=== PATIENT | female | born 1965 | race Caucasian/White ===

== ENCOUNTER 2017-09-09 14:45 | Emergency (ER) | payer OTHER ==
[2017-09-09 15:01] LABS: BASO % 0.4 % (0.0-1.0); EOS # 0.2 10^3/uL (0.0-0.50); EOS % 2.5 % (0.0-3.0); HEMATOCRIT 40.9 % (36.0-47.0); HEMOGLOBIN 13.5 g/dl (12.0-15.5); IMMATURE GRANULOCYTE % 0.6 % (0-3.0); LYMPH # 1.6 10^3/uL (1.5-4.5); LYMPH % 18.8 % (24.0-44.0); MEAN CORPUSCULAR HEMOGLOBIN 27.1 pg (27.0-33.0); MONO # 0.4 10^3/uL (0.0-0.8); MONO % 4.6 % (0.0-5.0); NEUTROPHILS # 6.1 10^3/uL (1.8-7.7); NEUTROPHILS % 73.1 % (36.0-66.0); PLATELET COUNT, AUTOMATED 393 10^3/uL (150-450); RED BLOOD COUNT 4.99 10^6/uL (4.00-5.40); RED CELL DISTRIBUTION WIDTH 16.8 % (11.5-14.5); WHITE BLOOD COUNT 8.4 10^3/uL (4.0-10.0)
[2017-09-09 15:02] LABS: BEDSIDE GLUCOSE 76 MG/DL (70-105)
[2017-09-09 15:05] LABS: VENOUS BASE EXCESS 2.2 (-2.0-2.0); VENOUS HCO3 27.7 MEQ/L (23.0-27.0); VENOUS O2 SATURATION 89.4 % (60.0-80.0); VENOUS PARTIAL PRESSURE CO2 45.9 mmHg (38.0-50.0); VENOUS PARTIAL PRESSURE O2 59.5 mmHg (30.0-50.0); VENOUS PH 7.398 UNITS (7.330-7.430); VENOUS STANDARD HCO3 26.3 MEQ/L; VENOUS TOTAL CO2 29.1 MEQ/L (24.0-28.0)
[2017-09-09 15:21] LABS: ESTIMATED AVERAGE GLUCOSE 111 MG/DL (60-110); HEMOGLOBIN A1c 5.5 %
[2017-09-09 15:29] LABS: ALBUMIN 3.8 GM/DL (3.2-5.2); ALKALINE PHOSPHATASE 175 U/L (45-117); ALT/SGPT 37 U/L (12-78); ANION GAP 5 MEQ/L (8-16); AST/SGOT 23 U/L (7-37); BILIRUBIN,DIRECT 0.1 MG/DL (0.0-0.2); BILIRUBIN,TOTAL 0.3 MG/DL (0.2-1.0); BLOOD UREA NITROGEN 9 MG/DL (7-18); CALCIUM LEVEL 8.9 MG/DL (8.5-10.1); CARBON DIOXIDE LEVEL 31 MEQ/L (21-32); CHLORIDE LEVEL 108 MEQ/L (98-107); CREATININE FOR GFR 0.75 MG/DL (0.55-1.30); GLOMERULAR FILTRATION RATE > 60.0 (>51); GLUCOSE, FASTING 67 MG/DL (70-100); LIPASE 101 U/L (73-393); POTASSIUM SERUM 3.2 MEQ/L (3.5-5.1); SODIUM LEVEL 144 MEQ/L (136-145); TOTAL PROTEIN 7.6 GM/DL (6.4-8.2)
[2017-09-09 15:57] LABS: BEDSIDE GLUCOSE 113 MG/DL (70-105)
== END 2017-09-09 16:30 | disposition home or self-care (01) ==
LOC: M ED 14:45
DX: E11.649 Type 2 diabetes mellitus with hypoglycemia without coma (principal); I10 Essential (primary) hypertension; Z79.899 Other long term (current) drug therapy; Z79.4 Long term (current) use of insulin
CPT/HCPCS: 83690

== ENCOUNTER 2017-10-14 01:47 | Inpatient (IN) | payer MEDICAID, OTHER ==
[2017-10-14 03:02] LABS: HEMATOCRIT 42.9 % (36.0-47.0); HEMOGLOBIN 14.2 g/dl (12.0-15.5); MEAN CORPUSCULAR HGB CONC 33.1 g/dl (32.0-36.5); MEAN CORPUSCULAR VOLUME 81.7 fl (80.0-96.0); PLATELET COUNT, AUTOMATED 389 10^3/uL (150-450); RED BLOOD COUNT 5.25 10^6/uL (4.00-5.40); RED CELL DISTRIBUTION WIDTH 16.1 % (11.5-14.5); WHITE BLOOD COUNT 9.6 10^3/uL (4.0-10.0)
[2017-10-14 03:30] LABS: AMPHETAMINES LEVEL URINE NEGATIVE (NEGATIVE); BARBITURATES URINE NEGATIVE (NEGATIVE); BENZODIAZEPINES URINE NEGATIVE (NEGATIVE); CANNABINOIDS URINE NEGATIVE (NEGATIVE); COCAINE METABOLITE URINE NEGATIVE (NEGATIVE); METHADONE URINE NEGATIVE (NEGATIVE); OPIATES URINE NEGATIVE (NEGATIVE); PHENCYCLIDINE URINE NEGATIVE (NEGATIVE)
[2017-10-14 03:39] LABS: ALBUMIN 4.1 GM/DL (3.2-5.2); ALBUMIN/GLOBULIN RATIO 0.98 (1.00-1.93); ALKALINE PHOSPHATASE 222 U/L (45-117); ALT/SGPT 29 U/L (12-78); ANION GAP 8 MEQ/L (8-16); AST/SGOT 15 U/L (7-37); BILIRUBIN,DIRECT 0.1 MG/DL (0.0-0.2); BILIRUBIN,TOTAL 0.4 MG/DL (0.2-1.0); BLOOD UREA NITROGEN 14 MG/DL (7-18); CALCIUM LEVEL 9.4 MG/DL (8.5-10.1); CARBON DIOXIDE LEVEL 30 MEQ/L (21-32); CHLORIDE LEVEL 107 MEQ/L (98-107); CREATININE FOR GFR 0.89 MG/DL (0.55-1.30); ETHYL ALCOHOL (ETHANOL) 0.005 % (0.000-0.010); GLOMERULAR FILTRATION RATE > 60.0 (>51); GLUCOSE, FASTING 133 MG/DL (70-100); POTASSIUM SERUM 4.1 MEQ/L (3.5-5.1); SALICYLATE LEVEL < 1.7 MG/DL (5.0-30.0); SODIUM LEVEL 145 MEQ/L (136-145); TOTAL PROTEIN 8.3 GM/DL (6.4-8.2)
[2017-10-14 03:42] LABS: ACETAMINOPHEN LEVEL < 2.0 UG/ML (10.0-30.0)
[2017-10-14] MEDS ORDERED: MAALOX 30 ML SUSP *UDC PO (04:15)
[2017-10-14] MEDS ORDERED: MOM 30ML SUSPENSION UDC PO (04:15)
[2017-10-14 09:52] LABS: BEDSIDE GLUCOSE 114 MG/DL (70-105)
[2017-10-14] MEDS ORDERED: GLUCAGON FOR INJ 1 MG VIAL (J1610) SC (10:00)
[2017-10-14] MEDS ORDERED: GLUCOSE 4 GM CHEW TABLET PO (10:00)
[2017-10-14] MEDS ORDERED: DEXTROSE 50% 50 ML SYRINGE IV (10:00)
[2017-10-14] MEDS: SERTRALINE HCL 50 MG TAB PO (11:40)
[2017-10-14 11:56] LABS: BEDSIDE GLUCOSE 134 MG/DL (70-105)
[2017-10-14] MEDS: HumaLOG INSULIN (NovoLOG) PER UNIT SC ×3 (12:25→20:49)
[2017-10-14] MEDS: hydrOXYzine 50 MG TAB PO (15:07)
[2017-10-14 17:10] LABS: BEDSIDE GLUCOSE 133 MG/DL (70-105)
[2017-10-14] MEDS: OMEPRAZOLE 20 MG CAP PO (20:44)
[2017-10-14] MEDS: PRAZOSIN 1 MG CAP PO (20:44)
[2017-10-14] MEDS: amLODIPine 5 MG TAB PO (20:44)
[2017-10-14] MEDS: FAMOTIDINE 20 MG TAB PO (20:44)
[2017-10-14] MEDS: LABETALOL 200 MG TAB PO (20:45)
[2017-10-14] MEDS: ATORVASTATIN 20 MG TAB PO (20:45)
[2017-10-14 20:51] LABS: BEDSIDE GLUCOSE 147 MG/DL (70-105)
[2017-10-14] MEDS ORDERED: LEVEMIR (INSULIN DETEMIR) 1 UNITS/0.01ML SC (21:00)
[2017-10-14] MEDS: traZODone 50 MG TAB PO (22:37)
[2017-10-14] MEDS: ACETAMINOPHEN TAB 650MG DOSE (2X325MG) PO (22:40)
[2017-10-15 05:30] LABS: BEDSIDE GLUCOSE 131 MG/DL (70-105)
[2017-10-15] MEDS: LEVOTHYROXINE 100MCG TABLET (0.1MG) PO (06:05)
[2017-10-15] MEDS: HumaLOG INSULIN (NovoLOG) PER UNIT SC ×4 (06:38→21:00)
[2017-10-15 06:48] LABS: HEMATOCRIT 41.4 % (36.0-47.0); HEMOGLOBIN 13.6 g/dl (12.0-15.5); MEAN CORPUSCULAR HEMOGLOBIN 26.9 pg (27.0-33.0); MEAN CORPUSCULAR HGB CONC 32.9 g/dl (32.0-36.5); PLATELET COUNT, AUTOMATED 349 10^3/uL (150-450); RED BLOOD COUNT 5.05 10^6/uL (4.00-5.40); WHITE BLOOD COUNT 7.8 10^3/uL (4.0-10.0)
[2017-10-15 07:19] LABS: ALBUMIN 3.8 GM/DL (3.2-5.2); ALBUMIN/GLOBULIN RATIO 1.03 (1.00-1.93); ALKALINE PHOSPHATASE 177 U/L (45-117); ALT/SGPT 27 U/L (12-78); ANION GAP 8 MEQ/L (8-16); AST/SGOT 17 U/L (7-37); BILIRUBIN,TOTAL 0.5 MG/DL (0.2-1.0); BLOOD UREA NITROGEN 16 MG/DL (7-18); CALCIUM LEVEL 8.9 MG/DL (8.5-10.1); CARBON DIOXIDE LEVEL 27 MEQ/L (21-32); CHLORIDE LEVEL 109 MEQ/L (98-107); CREATININE FOR GFR 0.75 MG/DL (0.55-1.30); GLOMERULAR FILTRATION RATE > 60.0 (>51); GLUCOSE, FASTING 134 MG/DL (70-100); POTASSIUM SERUM 4.1 MEQ/L (3.5-5.1); SODIUM LEVEL 144 MEQ/L (136-145); T UPTAKE 36 % (30-39); TOTAL PROTEIN 7.5 GM/DL (6.4-8.2)
[2017-10-15] MEDS: FUROSEMIDE 10MG PER 1/2 TABLET PO (08:36)
[2017-10-15] MEDS: POTASSIUM CHLORIDE 10 MEQ SR TABLET PO (08:36)
[2017-10-15] MEDS: SERTRALINE HCL 50 MG TAB PO (08:37)
[2017-10-15] MEDS: LOSARTAN 50 MG TAB PO (08:37)
[2017-10-15] MEDS: hydroCHLOROthiazide 25 MG TAB PO (08:37)
[2017-10-15] MEDS: LABETALOL 200 MG TAB PO ×2 (08:37→21:44)
[2017-10-15] MEDS: FAMOTIDINE 20 MG TAB PO ×2 (08:37→21:42)
[2017-10-15] MEDS: OMEPRAZOLE 20 MG CAP PO ×2 (08:38→21:42)
[2017-10-15] MEDS: LORATADINE 10 MG TAB PO (08:38)
[2017-10-15] MEDS: EZETIMIBE 10 MG TAB (ZETIA) PO (08:38)
[2017-10-15] MEDS: FERROUS SULFATE 325MG TAB PO (08:38)
[2017-10-15] MEDS: ACETAMINOPHEN TAB 650MG DOSE (2X325MG) PO (08:39)
[2017-10-15 12:12] LABS: BEDSIDE GLUCOSE 137 MG/DL (70-105)
[2017-10-15] MEDS: PREGABALIN 75 MG CAP(LYRICA) PO ×2 (16:43→21:42)
[2017-10-15 17:23] LABS: BEDSIDE GLUCOSE 127 MG/DL (70-105)
[2017-10-15] MEDS: amLODIPine 5 MG TAB PO (21:42)
[2017-10-15] MEDS: traZODone 50 MG TAB PO (21:42)
[2017-10-15] MEDS: PRAZOSIN 1 MG CAP PO (21:43)
[2017-10-15] MEDS: ATORVASTATIN 20 MG TAB PO (21:43)
[2017-10-15 21:51] LABS: BEDSIDE GLUCOSE 141 MG/DL (70-105)
[2017-10-16] MEDS: LEVOTHYROXINE 100MCG TABLET (0.1MG) PO (05:46)
[2017-10-16] MEDS: HumaLOG INSULIN (NovoLOG) PER UNIT SC ×4 (06:29→21:00)
[2017-10-16] MEDS: LOSARTAN 50 MG TAB PO (08:02)
[2017-10-16] MEDS: PREGABALIN 75 MG CAP(LYRICA) PO ×3 (08:03→21:10)
[2017-10-16] MEDS: FUROSEMIDE 10MG PER 1/2 TABLET PO (08:03)
[2017-10-16] MEDS: OMEPRAZOLE 20 MG CAP PO ×2 (08:03→21:10)
[2017-10-16] MEDS: LABETALOL 200 MG TAB PO ×2 (08:03→21:12)
[2017-10-16] MEDS: SERTRALINE HCL 50 MG TAB PO (08:03)
[2017-10-16] MEDS: FERROUS SULFATE 325MG TAB PO (08:04)
[2017-10-16] MEDS: LORATADINE 10 MG TAB PO (08:04)
[2017-10-16] MEDS: EZETIMIBE 10 MG TAB (ZETIA) PO (08:04)
[2017-10-16] MEDS: POTASSIUM CHLORIDE 10 MEQ SR TABLET PO (08:04)
[2017-10-16] MEDS: FAMOTIDINE 20 MG TAB PO ×2 (08:04→21:10)
[2017-10-16] MEDS: hydroCHLOROthiazide 25 MG TAB PO (08:04)
[2017-10-16 12:03] LABS: BEDSIDE GLUCOSE 137 MG/DL (70-105)
[2017-10-16 16:56] LABS: BEDSIDE GLUCOSE 134 MG/DL (70-105)
[2017-10-16] MEDS: ATORVASTATIN 20 MG TAB PO (21:10)
[2017-10-16] MEDS: amLODIPine 5 MG TAB PO (21:11)
[2017-10-16] MEDS: PRAZOSIN 1 MG CAP PO (21:11)
[2017-10-16 21:27] LABS: BEDSIDE GLUCOSE 138 MG/DL (70-105)
[2017-10-16] MEDS: traZODone 50 MG TAB PO (22:32)
[2017-10-17] MEDS: LEVOTHYROXINE 100MCG TABLET (0.1MG) PO (05:31)
[2017-10-17 05:59] LABS: BEDSIDE GLUCOSE 163 MG/DL (70-105)
[2017-10-17] MEDS: HumaLOG INSULIN (NovoLOG) PER UNIT SC ×4 (06:18→21:00)
[2017-10-17] MEDS: FAMOTIDINE 20 MG TAB PO ×2 (09:07→22:21)
[2017-10-17] MEDS: LORATADINE 10 MG TAB PO (09:07)
[2017-10-17] MEDS: EZETIMIBE 10 MG TAB (ZETIA) PO (09:07)
[2017-10-17] MEDS: LABETALOL 200 MG TAB PO ×2 (09:14→22:26)
[2017-10-17] MEDS: FERROUS SULFATE 325MG TAB PO (09:15)
[2017-10-17] MEDS: hydroCHLOROthiazide 25 MG TAB PO (09:15)
[2017-10-17] MEDS: PREGABALIN 75 MG CAP(LYRICA) PO ×3 (09:26→22:25)
[2017-10-17] MEDS: OMEPRAZOLE 20 MG CAP PO ×2 (09:26→22:26)
[2017-10-17] MEDS: SERTRALINE HCL 50 MG TAB PO (09:26)
[2017-10-17] MEDS: LOSARTAN 50 MG TAB PO (09:28)
[2017-10-17] MEDS: POTASSIUM CHLORIDE 10 MEQ SR TABLET PO (09:28)
[2017-10-17] MEDS: FUROSEMIDE 10MG PER 1/2 TABLET PO (09:33)
[2017-10-17 10:34] LABS: BEDSIDE GLUCOSE 134 MG/DL (70-105)
[2017-10-17] MEDS: ATORVASTATIN 20 MG TAB PO (22:21)
[2017-10-17] MEDS: PRAZOSIN 1 MG CAP PO (22:25)
[2017-10-17] MEDS: amLODIPine 5 MG TAB PO (22:26)
[2017-10-17 22:27] LABS: BEDSIDE GLUCOSE 131 MG/DL (70-105)
[2017-10-18] MEDS: LEVOTHYROXINE 100MCG TABLET (0.1MG) PO (06:11)
[2017-10-18 06:26] LABS: BEDSIDE GLUCOSE 153 MG/DL (70-105)
[2017-10-18] MEDS: HumaLOG INSULIN (NovoLOG) PER UNIT SC ×4 (06:32→22:05)
[2017-10-18] MEDS: SERTRALINE HCL 50 MG TAB PO (08:21)
[2017-10-18] MEDS: PREGABALIN 75 MG CAP(LYRICA) PO ×3 (08:21→22:02)
[2017-10-18] MEDS: POTASSIUM CHLORIDE 10 MEQ SR TABLET PO (08:21)
[2017-10-18] MEDS: OMEPRAZOLE 20 MG CAP PO ×2 (08:21→22:02)
[2017-10-18] MEDS: FERROUS SULFATE 325MG TAB PO (08:22)
[2017-10-18] MEDS: FAMOTIDINE 20 MG TAB PO ×2 (08:22→22:02)
[2017-10-18] MEDS: LOSARTAN 50 MG TAB PO (08:22)
[2017-10-18] MEDS: FUROSEMIDE 10MG PER 1/2 TABLET PO (08:22)
[2017-10-18] MEDS: hydroCHLOROthiazide 25 MG TAB PO (08:22)
[2017-10-18] MEDS: LORATADINE 10 MG TAB PO (08:22)
[2017-10-18] MEDS: EZETIMIBE 10 MG TAB (ZETIA) PO (08:22)
[2017-10-18] MEDS: LABETALOL 200 MG TAB PO ×2 (08:23→22:02)
[2017-10-18 12:22] LABS: BEDSIDE GLUCOSE 141 MG/DL (70-105)
[2017-10-18] MEDS: hydrOXYzine 50 MG TAB PO (14:27)
[2017-10-18 17:26] LABS: BEDSIDE GLUCOSE 157 MG/DL (70-105)
[2017-10-18] MEDS: ATORVASTATIN 20 MG TAB PO (22:02)
[2017-10-18] MEDS: PRAZOSIN 1 MG CAP PO (22:03)
[2017-10-18] MEDS: amLODIPine 5 MG TAB PO (22:03)
[2017-10-18] MEDS: traZODone 50 MG TAB PO (22:05)
[2017-10-18 22:15] LABS: BEDSIDE GLUCOSE 142 MG/DL (70-105)
[2017-10-19] MEDS: LEVOTHYROXINE 100MCG TABLET (0.1MG) PO (06:18)
[2017-10-19 06:28] LABS: BEDSIDE GLUCOSE 181 MG/DL (70-105)
[2017-10-19] MEDS: HumaLOG INSULIN (NovoLOG) PER UNIT SC (06:32)
[2017-10-19 07:55] LABS: BEDSIDE GLUCOSE 155 MG/DL (70-105)
[2017-10-19 07:55] LABS: BEDSIDE GLUCOSE 183 MG/DL (70-105)
[2017-10-19] MEDS: PREGABALIN 75 MG CAP(LYRICA) PO (08:33)
[2017-10-19] MEDS: LOSARTAN 50 MG TAB PO (08:33)
[2017-10-19] MEDS: LORATADINE 10 MG TAB PO (08:34)
[2017-10-19] MEDS: FUROSEMIDE 10MG PER 1/2 TABLET PO (08:34)
[2017-10-19] MEDS: LABETALOL 200 MG TAB PO (08:34)
[2017-10-19] MEDS: POTASSIUM CHLORIDE 10 MEQ SR TABLET PO (08:34)
[2017-10-19] MEDS: FERROUS SULFATE 325MG TAB PO (08:34)
[2017-10-19] MEDS: FAMOTIDINE 20 MG TAB PO (08:34)
[2017-10-19] MEDS: EZETIMIBE 10 MG TAB (ZETIA) PO (08:34)
[2017-10-19] MEDS: hydroCHLOROthiazide 25 MG TAB PO (08:34)
[2017-10-19] MEDS: OMEPRAZOLE 20 MG CAP PO (08:34)
[2017-10-19] MEDS: SERTRALINE HCL 50 MG TAB PO (08:34)
== END 2017-10-19 11:30 | disposition home or self-care (01) | DRG 885 ==
LOC: M ED 01:47 → M PSY 04:04
DX: F32.2 Major depressive disorder, single episode, severe without psychotic features (principal); Z68.42 Body mass index [BMI] 45.0-49.9, adult; F43.10 Post-traumatic stress disorder, unspecified; F41.1 Generalized anxiety disorder; Z62.810 Personal history of physical and sexual abuse in childhood; I10 Essential (primary) hypertension; E11.9 Type 2 diabetes mellitus without complications; F81.9 Developmental disorder of scholastic skills, unspecified; E78.5 Hyperlipidemia, unspecified; E03.9 Hypothyroidism, unspecified; E04.2 Nontoxic multinodular goiter; K21.9 Gastro-esophageal reflux disease without esophagitis; E66.9 Obesity, unspecified; J30.9 Allergic rhinitis, unspecified; M54.9 Dorsalgia, unspecified; D50.9 Iron deficiency anemia, unspecified; Z81.8 Family history of other mental and behavioral disorders; Z79.4 Long term (current) use of insulin; Z79.899 Other long term (current) drug therapy; Z81.3 Family history of other psychoactive substance abuse and dependence; Z63.5 Disruption of family by separation and divorce

== ENCOUNTER → 2018-08-23 | Outpatient (REF) | payer OTHER ==
[~2018-08-23] MED LIST: /AMIT25TA PO; /AMLO25TA PO; ALBU17IN2 INH; ALOG25TA PO; AMIT25TA PO; AMIT25TA10 PO; AMIT50TA PO; AMLO5TAB2 PO; AMLO5TAB6 PO; ANTI2TAB; ATOR40TA75; ATOR40TA75 PO; AUGM875T27 PO; BACL10TA2; BACL10TA2 PO; BENZ200C70 PO; CIPR500T89 PO; DRIS50003 PO; EZET10TA; FERR1TAB8; FERR325T3 PO; FLAG500T PO; FURO20TA2; FURO20TA2 PO; GABA-1171 PO; GABA100C PO; GABA600T4; GLIP5TAB2 PO; GLIP5TAB8 PO; HUMU500S SC; HYDR25TAB PO; HYDR50TA2 PO; HYDRO50TAB PO; INSULANT SC; INSURSD SC; INVO100T PO; JANU25TA PO; KLOR10TA76 PO; LABE20TAB PO; LABE300T PO; LEVO200T4; LEVO200T4 PO; LISI40TAB PO; LISI5TAB PO; LORA-243; LORA-243 PO; LOSA100T50; LOSA100T50 PO; LOVA40TA PO; LYRI75CA; LYRI75CA PO; METF1000 PO; METH25TAB; METH25TAB OR; MINI1CAP PO; MUCI600T37 PO; OMEP10CASR PO; OMEP20CA3 PO; POTA10CA32; POTA10TA PO; PRIL20CA PO; PYRI200T2 PO; RANI150T; RANI150T PO; SERT50TA PO; SIME80TA PO; TAPA5TAB PO; TOUJ1.2I; TOUJ1.2I SC; TRAZO50TA PO; TYLE325T5 PO; VITA10002 PO; VITA500047 PO; VITA50005 PO; VITA500T53 PO; ZEST30TA2 PO; ZETI10TA30 PO; lantus SC; potassium OR; vitamin D OR
[2018-08-23 17:03] LABS: APPEARANCE, URINE CLEAR (CLEAR); BACTERIA, URINE AUTO NEGATIVE (NEGATIVE); BILIRUBIN, URINE AUTO NEGATIVE (NEGATIVE); BLOOD, URINE BLOOD NEGATIVE (NEGATIVE); COLOR, URINE YELLOW (YELLOW); GLUCOSE, URINE (UA) AUTO 3+ mg/dL (NEGATIVE); KETONE, URINE AUTO TRACE mg/dL (NEGATIVE); LEUKOCYTE ESTERASE, URINE AUTO 1+ (NEGATIVE); NITRITE, URINE AUTO NEGATIVE (NEGATIVE); PROTEIN, URINE AUTO NEGATIVE (NEGATIVE); RBC, URINE AUTO 1 /HPF (0-3); SPECIFIC GRAVITY URINE AUTO 1.036 (1.002-1.035); SQUAMOUS EPITHELIAL CELL UR AU 2 /HPF (0-6); UROBILINOGEN, URINE AUTO 0.2 mg/dL (0.0-2.0); WBC, URINE AUTO 21 /HPF (0-3)
[2018-08-23 17:16] LABS: BASO % 0.4 % (0.0-1.0); EOS # 0.2 10^3/uL (0.0-0.50); EOS % 2.2 % (0.0-3.0); HEMATOCRIT 44.5 % (36.0-47.0); HEMOGLOBIN 15.1 g/dl (12.0-15.5); MEAN CORPUSCULAR HEMOGLOBIN 27.6 pg (27.0-33.0); MEAN CORPUSCULAR HGB CONC 33.9 g/dl (32.0-36.5); MEAN CORPUSCULAR VOLUME 81.4 fl (80.0-96.0); MONO # 0.4 10^3/uL (0.0-0.8); MONO % 5.2 % (0.0-5.0); NEUTROPHILS # 4.1 10^3/uL (1.8-7.7); NEUTROPHILS % 61.8 % (36.0-66.0); PLATELET COUNT, AUTOMATED 276 10^3/uL (150-450); RED BLOOD COUNT 5.47 10^6/uL (4.00-5.40); WHITE BLOOD COUNT 6.7 10^3/uL (4.0-10.0)
[2018-08-23 17:18] LABS: ALBUMIN 3.8 GM/DL (3.2-5.2); ALT/SGPT 84 U/L (12-78); BILIRUBIN,TOTAL 0.6 MG/DL (0.2-1.0); BLOOD UREA NITROGEN 10 MG/DL (7-18); CALCIUM LEVEL 9.1 MG/DL (8.5-10.1); CARBON DIOXIDE LEVEL 32 MEQ/L (21-32); CHLORIDE LEVEL 101 MEQ/L (98-107); CHOLESTEROL LEVEL 165 MG/DL (<200); CHOLESTEROL RISK RATIO 2.704 (<5); FREE T4 0.85 NG/DL (0.76-1.46); GLOMERULAR FILTRATION RATE > 60.0 (>51); GLUCOSE, FASTING 351 MG/DL (70-100); HDL CHOLESTEROL 61 MG/DL (>40); LDL CHOLESTEROL 61 MG/DL (<100); NON-HDL-C 104 MG/DL; POTASSIUM SERUM 4.2 MEQ/L (3.5-5.1); SODIUM LEVEL 139 MEQ/L (136-145); TOTAL PROTEIN 7.2 GM/DL (6.4-8.2); TRIGLYCERIDES LEVEL 213 MG/DL (<150)
[2018-08-23 17:20] LABS: FOLATE 11.6 NG/ML; VITAMIN B12 LEVEL 680 PG/ML
[2018-08-23 17:31] LABS: CREATININE, URINE 64.3 MG/DL; MAU/CREAT RATIO 20.2 MCG/MG (0.0-30.0)
[2018-08-23 17:36] LABS: HEMOGLOBIN A1c 8.9 %
== END ==
LOC: M LABDRAW1 16:02
PROVIDERS: ATTEND Family Medicine
DX: I10 Essential (primary) hypertension (principal); E11.9 Type 2 diabetes mellitus without complications; E78.5 Hyperlipidemia, unspecified; K21.9 Gastro-esophageal reflux disease without esophagitis; E03.9 Hypothyroidism, unspecified; R30.1 Vesical tenesmus

== ENCOUNTER 2018-10-28 17:11 | Emergency (ER) | payer OTHER ==
[~2018-10-28] VITALS: Ht 162.6 cm; Wt 111.4 kg
[~2018-10-28 17:11] MED LIST changes: -/AMIT25TA PO; -/AMLO25TA PO; +AMIT1TAB11 PO; -ANTI2TAB; +ANTI2TAB16; +HYDR-2541 PO; -HYDR25TAB PO; +LABE200T13 PO; +LISI40TA52 PO; -LISI40TAB PO; +NORV2TAB PO; +SERT-141 PO; -SERT50TA PO
[2018-10-28] MEDS ORDERED: IPRATROPIUM 0.5MG/ALBUTEROL 2.5MG INH SOL UD 3ML (DUONEB)(J7620) NEB ONE (18:00)
[2018-10-28 18:27] LABS: BASO % 0.6 % (0.0-1.0); EOS # 0.2 10^3/uL (0.0-0.50); EOS % 3.3 % (0.0-3.0); HEMATOCRIT 43.2 % (36.0-47.0); HEMOGLOBIN 15.2 g/dl (12.0-15.5); LYMPH % 28.7 % (24.0-44.0); MEAN CORPUSCULAR HEMOGLOBIN 28.4 pg (27.0-33.0); MEAN CORPUSCULAR HGB CONC 35.2 g/dl (32.0-36.5); MEAN CORPUSCULAR VOLUME 80.7 fl (80.0-96.0); MONO # 0.5 10^3/uL (0.0-0.8); MONO % 6.8 % (0.0-5.0); NEUTROPHILS # 4.2 10^3/uL (1.8-7.7); NEUTROPHILS % 59.9 % (36.0-66.0); PLATELET COUNT, AUTOMATED 289 10^3/uL (150-450); RED BLOOD COUNT 5.35 10^6/uL (4.00-5.40)
[2018-10-28] MEDS ORDERED: predniSONE 20 MG TAB PO ONE (18:30)
[2018-10-28 18:49] LABS: ALBUMIN 3.8 GM/DL (3.2-5.2); ALT/SGPT 73 U/L (12-78); BILIRUBIN,DIRECT 0.2 MG/DL (0.0-0.2); BILIRUBIN,TOTAL 0.6 MG/DL (0.2-1.0); BLOOD UREA NITROGEN 7 MG/DL (7-18); CALCIUM LEVEL 9.2 MG/DL (8.5-10.1); CARBON DIOXIDE LEVEL 30 MEQ/L (21-32); CHLORIDE LEVEL 103 MEQ/L (98-107); CK-MB VALUE MASS < 1.0 NG/ML (<3.6); CPK CREATINE PHOSPHOKINASE 81 U/L (26-192); CREATININE FOR GFR 0.88 MG/DL (0.55-1.30); GLOMERULAR FILTRATION RATE > 60.0 (>51); GLUCOSE, FASTING 294 MG/DL (70-100); MB/CK RELATIVE INDEX 1.23 (< OR =4); NT-PRO BNP 235 PG/ML (<125); POTASSIUM SERUM 3.5 MEQ/L (3.5-5.1); SODIUM LEVEL 140 MEQ/L (136-145); TOTAL PROTEIN 7.3 GM/DL (6.4-8.2); TROPONIN I < 0.02 NG/ML (< 0.10)
[2018-10-28] MEDS ORDERED: FLUT22IN INH (19:38)
[2018-10-28] MEDS ORDERED: AUGM875T28 PO (19:38)
[2018-10-28] MEDS ORDERED: VENTAER INH (19:38)
[2018-10-28 19:56] VITALS: BP 128/76
--- NOTE | 2018-10-29 08:05 | REP ---
REASON FOR EXAM: Cough and dyspnea. COMPARISON EXAMINATION: 11/15/2017. FINDINGS: The superior mediastinal structures are midline. The cardiac silhouette is unremarkable in size, shape, and position. The diaphragmatic surfaces of the lungs are regular, and the costophrenic angles are clear. The pulmonary frank are clear. The imaged osseous structures are intact. IMPRESSION: There is no acute cardiopulmonary disease. Electronically Signed by Ja Ibrahim DO 10/29/2018 08:30 A
--- NOTE | 2018-10-29 17:46 | ECGEPIP ---
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
== END 2018-10-28 20:05 | disposition home or self-care (01) ==
LOC: M ED 17:11
DX: J20.9 Acute bronchitis, unspecified (principal); E66.9 Obesity, unspecified; E11.9 Type 2 diabetes mellitus without complications; I10 Essential (primary) hypertension; E78.5 Hyperlipidemia, unspecified; K21.9 Gastro-esophageal reflux disease without esophagitis; G43.909 Migraine, unspecified, not intractable, without status migrainosus; E03.9 Hypothyroidism, unspecified; F41.9 Anxiety disorder, unspecified; F32.9 Major depressive disorder, single episode, unspecified; M54.30 Sciatica, unspecified side; D64.9 Anemia, unspecified; Z82.49 Family history of ischemic heart disease and other diseases of the circulatory system; Z82.5 Family history of asthma and other chronic lower respiratory diseases; Z79.4 Long term (current) use of insulin; Z79.899 Other long term (current) drug therapy; Z88.5 Allergy status to narcotic agent

== ENCOUNTER → 2019-02-27 | Outpatient (CLI) | payer OTHER ==
[~2019-02-27] MED LIST changes: -ALBU17IN2 INH; +AUGM875T28 PO; +CYAN100049 PO; -EZET10TA; +EZET10TA21; +FLUT22IN INH; +HYDR1TAB33 PO; -HYDRO50TAB PO; +OMEP1CAP73 PO; +PROV108A INH; +TRAZ1TAB10 PO; -TRAZO50TA PO; +VENTAER INH; +ZETI10TA16 PO; -ZETI10TA30 PO
[2019-02-27 17:13] LABS: BASO % 0.5 % (0.0-1.0); EOS # 0.2 10^3/uL (0.0-0.5); EOS % 1.9 % (0.0-3.0); HEMATOCRIT 43.3 % (36.0-47.0); HEMOGLOBIN 14.9 g/dl (12.0-15.5); LYMPH # 2.1 10^3/uL (1.5-5.0); MEAN CORPUSCULAR HEMOGLOBIN 28.4 pg (27.0-33.0); MEAN CORPUSCULAR HGB CONC 34.4 g/dl (32.0-36.5); MEAN CORPUSCULAR VOLUME 82.5 fl (80.0-96.0); MONO # 0.4 10^3/uL (0.0-0.8); MONO % 4.8 % (0.0-5.0); NEUTROPHILS # 5.1 10^3/uL (1.5-8.5); NEUTROPHILS % 65.4 % (36.0-66.0); PLATELET COUNT, AUTOMATED 319 10^3/uL (150-450); RED BLOOD COUNT 5.25 10^6/uL (4.00-5.40); WHITE BLOOD COUNT 7.9 10^3/uL (4.0-10.0)
[2019-02-27 17:39] LABS: ALBUMIN 3.7 GM/DL (3.2-5.2); ALT/SGPT 101 U/L (12-78); BILIRUBIN,TOTAL 0.4 MG/DL (0.2-1.0); BLOOD UREA NITROGEN 7 MG/DL (7-18); CALCIUM LEVEL 9.5 MG/DL (8.5-10.1); CARBON DIOXIDE LEVEL 29 MEQ/L (21-32); CHLORIDE LEVEL 102 MEQ/L (98-107); CHOLESTEROL LEVEL 206 MG/DL (<200); CHOLESTEROL RISK RATIO 3.433 (<5); CREATININE FOR GFR 0.84 MG/DL (0.55-1.30); FREE T4 0.74 NG/DL (0.76-1.46); GLOMERULAR FILTRATION RATE > 60.0 (>51); GLUCOSE, FASTING 382 MG/DL (70-100); HDL CHOLESTEROL 60 MG/DL (>40); IRON (FE) 62 UG/DL (50-170); LDL CHOLESTEROL 74 MG/DL (<100); NON-HDL-C 146 MG/DL; POTASSIUM SERUM 3.8 MEQ/L (3.5-5.1); SODIUM LEVEL 140 MEQ/L (136-145); TRIGLYCERIDES LEVEL 359 MG/DL (<150)
[2019-02-27 17:45] LABS: APPEARANCE, URINE CLEAR (CLEAR); BACTERIA, URINE AUTO NEGATIVE (NEGATIVE); BILIRUBIN, URINE AUTO NEGATIVE (NEGATIVE); BLOOD, URINE BLOOD NEGATIVE (NEGATIVE); COLOR, URINE YELLOW (YELLOW); GLUCOSE, URINE (UA) AUTO 3+ mg/dL (NEGATIVE); KETONE, URINE AUTO NEGATIVE (NEGATIVE); LEUKOCYTE ESTERASE, URINE AUTO TRACE (NEGATIVE); NITRITE, URINE AUTO NEGATIVE (NEGATIVE); PROTEIN, URINE AUTO NEGATIVE (NEGATIVE); RBC, URINE AUTO 2 /HPF (0-3); SPECIFIC GRAVITY URINE AUTO 1.032 (1.002-1.035); SQUAMOUS EPITHELIAL CELL UR AU 2 /HPF (0-6); UROBILINOGEN, URINE AUTO 0.2 mg/dL (0.0-2.0); WBC, URINE AUTO 8 /HPF (0-3)
[2019-02-27 17:47] LABS: CREATININE, URINE 48.9 MG/DL; MALB URINE SIEMENS 19.4 MG/L; MAU/CREAT RATIO 39.6 MCG/MG (0.0-30.0)
[2019-02-27 18:08] LABS: HEMOGLOBIN A1c 9.3 %
[2019-03-02 00:06] LABS: TESTOSTERONE FREE (DIRECT) 3.5 pg/mL (0.0-4.2)
== END ==
LOC: M LAB 16:13
PROVIDERS: ATTEND Family Medicine
DX: E03.9 Hypothyroidism, unspecified (principal); E11.40 Type 2 diabetes mellitus with diabetic neuropathy, unspecified; R94.5 Abnormal results of liver function studies; Z79.4 Long term (current) use of insulin; E78.5 Hyperlipidemia, unspecified; L65.9 Nonscarring hair loss, unspecified

== ENCOUNTER → 2019-03-22 | Outpatient (CLI) | payer OTHER ==
[~2019-03-22] MED LIST changes: -OMEP1CAP73 PO; +OMEP20CA4 PO
== END ==
LOC: M LAB 16:32
PROVIDERS: ATTEND Internal Medicine Cardiovascular Disease
DX: R06.02 Shortness of breath (principal)

== ENCOUNTER → 2019-07-27 | Outpatient (REF) | payer OTHER ==
[~2019-07-27] MED LIST changes: +OMEP1CAP73 PO; -OMEP20CA4 PO
[2019-07-27 22:20] LABS: INFLUENZA A AMPLIFICATION NEGATIVE (NEGATIVE); INFLUENZA B AMPLIFICATION NEGATIVE (NEGATIVE)
== END ==
LOC: M LAB REF 08:40
PROVIDERS: ATTEND Physician Assistant
DX: J10.1 Influenza due to other identified influenza virus with other respiratory manifestations (principal)

== ENCOUNTER → 2019-12-25 | Outpatient (CLI) | payer OTHER ==
[~2019-12-25] MED LIST changes: +AMLO1TAB24 PO; -AMLO5TAB6 PO
[2019-12-25 18:21] LABS: ALBUMIN 3.4 GM/DL (3.2-5.2); ALT/SGPT 40 U/L (12-78); BILIRUBIN,TOTAL 0.4 MG/DL (0.2-1.0); BLOOD UREA NITROGEN 18 MG/DL (7-18); CALCIUM LEVEL 9.3 MG/DL (8.5-10.1); CARBON DIOXIDE LEVEL 28 MEQ/L (21-32); CHLORIDE LEVEL 105 MEQ/L (98-107); CHOLESTEROL LEVEL 211 MG/DL (<200); CHOLESTEROL RISK RATIO 3.196 (<5); FREE T4 1.16 NG/DL (0.76-1.46); GLOMERULAR FILTRATION RATE > 60.0 (>51); GLUCOSE, FASTING 180 MG/DL (70-100); HDL CHOLESTEROL 66 MG/DL (>40); IRON (FE) 68 UG/DL (50-170); LDL CHOLESTEROL 106 MG/DL (<100); NON-HDL-C 145 MG/DL; PERCENT SATURATION 20.7 % (13.2-45.0); POTASSIUM SERUM 3.8 MEQ/L (3.5-5.1); SODIUM LEVEL 142 MEQ/L (136-145); THYROID STIMULATING HORMONE 0.668 uIU/ML (0.358-3.740); TOTAL IRON BINDING CAPACITY 328 UG/DL (250-450); TRIGLYCERIDES LEVEL 193 MG/DL (<150)
[2019-12-25 18:45] LABS: BASO % 0.5 % (0.0-1.0); EOS # 0.2 10^3/uL (0.0-0.5); EOS % 2.1 % (0.0-3.0); HEMATOCRIT 45.5 % (36.0-47.0); HEMOGLOBIN 15.2 g/dl (12.0-15.5); LYMPH # 2.7 10^3/uL (1.5-5.0); MEAN CORPUSCULAR HEMOGLOBIN 27.5 pg (27.0-33.0); MEAN CORPUSCULAR HGB CONC 33.4 g/dl (32.0-36.5); MEAN CORPUSCULAR VOLUME 82.3 fl (80.0-96.0); MONO # 0.5 10^3/uL (0.0-0.8); MONO % 5.5 % (0.0-5.0); NEUTROPHILS # 5.3 10^3/uL (1.5-8.5); NEUTROPHILS % 60.6 % (36.0-66.0); PLATELET COUNT, AUTOMATED 347 10^3/uL (150-450); RED BLOOD COUNT 5.53 10^6/uL (4.00-5.40); WHITE BLOOD COUNT 8.7 10^3/uL (4.0-10.0)
[2019-12-25 18:52] LABS: HEMOGLOBIN A1c 9.9 %
== END ==
LOC: M LAB 15:55
PROVIDERS: ATTEND Family Medicine
DX: E03.9 Hypothyroidism, unspecified (principal); E11.40 Type 2 diabetes mellitus with diabetic neuropathy, unspecified; R94.5 Abnormal results of liver function studies; E61.1 Iron deficiency; E78.5 Hyperlipidemia, unspecified; L65.9 Nonscarring hair loss, unspecified; Z79.4 Long term (current) use of insulin

== ENCOUNTER → 2020-11-02 | Outpatient (CLI) | payer OTHER ==
[~2020-11-02] MED LIST changes: -AMIT25TA PO; +AMIT25TA17 PO
[2020-11-02 15:48] LABS: ALT/SGPT 64 U/L (12-78); BILIRUBIN,TOTAL 0.9 MG/DL (0.2-1.0); BLOOD UREA NITROGEN 10 MG/DL (7-18); CARBON DIOXIDE LEVEL 29 MEQ/L (21-32); CHLORIDE LEVEL 101 MEQ/L (98-107); CHOLESTEROL LEVEL 195 MG/DL (<200); CHOLESTEROL RISK RATIO 3.145 (<5); CREATININE FOR GFR 0.78 MG/DL (0.55-1.30); FREE T4 1.28 NG/DL (0.76-1.46); GLOMERULAR FILTRATION RATE > 60.0 (>51); GLUCOSE, FASTING 134 MG/DL (70-100); HDL CHOLESTEROL 62 MG/DL (>40); LDL CHOLESTEROL 97 MG/DL (<100); NON-HDL-C 133 MG/DL; POTASSIUM SERUM 3.6 MEQ/L (3.5-5.1); SODIUM LEVEL 140 MEQ/L (136-145); TOTAL PROTEIN 7.8 GM/DL (6.4-8.2); TRIGLYCERIDES LEVEL 180 MG/DL (<150)
[2020-11-02 15:53] LABS: MAU/CREAT RATIO 30.2 MCG/MG (0.0-30.0)
== END ==
LOC: M LAB 14:45
PROVIDERS: ATTEND Nurse Practitioner Family
DX: E11.65 Type 2 diabetes mellitus with hyperglycemia (principal); E89.0 Postprocedural hypothyroidism

== ENCOUNTER → 2020-12-05 | Outpatient (CLI) | payer OTHER ==
[2020-12-05 13:50] LABS: BLOOD UREA NITROGEN 10 MG/DL (7-18); CALCIUM LEVEL 9.8 MG/DL (8.5-10.1); CARBON DIOXIDE LEVEL 31 MEQ/L (21-32); CHLORIDE LEVEL 102 MEQ/L (98-107); CREATININE FOR GFR 0.64 MG/DL (0.55-1.30); GLOMERULAR FILTRATION RATE > 60.0 (>51); GLUCOSE, FASTING 158 MG/DL (70-100); POTASSIUM SERUM 3.2 MEQ/L (3.5-5.1); SODIUM LEVEL 140 MEQ/L (136-145)
== END ==
LOC: M LAB 12:17
PROVIDERS: ATTEND Nurse Practitioner Family
DX: E11.65 Type 2 diabetes mellitus with hyperglycemia (principal)

== ENCOUNTER → 2021-02-12 | Outpatient (CLI) | payer OTHER ==
[2021-02-12 13:44] LABS: BASO # 0.1 10^3/uL (0.0-0.2); BASO % 0.7 % (0.0-1.0); EOS # 0.2 10^3/uL (0.0-0.5); EOS % 1.9 % (0.0-3.0); HEMATOCRIT 44.4 % (36.0-47.0); HEMOGLOBIN 15.4 g/dl (12.0-15.5); LYMPH # 2.7 10^3/uL (1.5-5.0); LYMPH % 25.4 % (24.0-44.0); MEAN CORPUSCULAR HEMOGLOBIN 27.5 pg (27.0-33.0); MEAN CORPUSCULAR HGB CONC 34.7 g/dl (32.0-36.5); MEAN CORPUSCULAR VOLUME 79.1 fl (80.0-96.0); MONO # 0.5 10^3/uL (0.0-0.8); MONO % 5.2 % (2.0-8.0); NEUTROPHILS # 6.9 10^3/uL (1.5-8.5); NEUTROPHILS % 66.2 % (36.0-66.0); PLATELET COUNT, AUTOMATED 377 10^3/uL (150-450); RED BLOOD COUNT 5.61 10^6/uL (4.00-5.40); WHITE BLOOD COUNT 10.5 10^3/uL (4.0-10.0)
[2021-02-12 13:49] LABS: APPEARANCE, URINE HAZY (CLEAR); BACTERIA, URINE AUTO 1+ (NEGATIVE); BILIRUBIN, URINE AUTO NEGATIVE (NEGATIVE); BLOOD, URINE BLOOD NEGATIVE (NEGATIVE); COLOR, URINE YELLOW (YELLOW); GLUCOSE, URINE (UA) AUTO 3+ mg/dL (NEGATIVE); KETONE, URINE AUTO NEGATIVE (NEGATIVE); LEUKOCYTE ESTERASE, URINE AUTO 1+ (NEGATIVE); MUCUS, URINE SMALL (NEGATIVE); NITRITE, URINE AUTO NEGATIVE (NEGATIVE); PROTEIN, URINE AUTO NEGATIVE (NEGATIVE); RBC, URINE AUTO 2 /HPF (0-3); SPECIFIC GRAVITY URINE AUTO 1.033 (1.002-1.035); SQUAMOUS EPITHELIAL CELL UR AU 4 /HPF (0-6); UROBILINOGEN, URINE AUTO 0.2 mg/dL (0.0-2.0); WBC, URINE AUTO 30 /HPF (0-3)
[2021-02-12 14:11] LABS: MAGNESIUM LEVEL 2.4 MG/DL (1.8-2.4); POTASSIUM SERUM 3.4 MEQ/L (3.5-5.1)
[2021-02-12 14:40] LABS: ALBUMIN 3.5 GM/DL (3.2-5.2); ALT/SGPT 76 U/L (12-78); BILIRUBIN,TOTAL 0.4 MG/DL (0.2-1.0); BLOOD UREA NITROGEN 9 MG/DL (7-18); CALCIUM LEVEL 9.5 MG/DL (8.5-10.1); CARBON DIOXIDE LEVEL 31 MEQ/L (21-32); CHLORIDE LEVEL 103 MEQ/L (98-107); CHOLESTEROL LEVEL 233 MG/DL (<200); CHOLESTEROL RISK RATIO 3.758 (<5); CREATININE FOR GFR 0.65 MG/DL (0.55-1.30); FREE T4 0.94 NG/DL (0.76-1.46); GLOMERULAR FILTRATION RATE > 60.0 (>51); GLUCOSE, FASTING 207 MG/DL (70-100); HDL CHOLESTEROL 62 MG/DL (>40); IRON (FE) 64 UG/DL (50-170); LDL CHOLESTEROL 123 MG/DL (<100); NON-HDL-C 171 MG/DL; POTASSIUM SERUM 3.6 MEQ/L (3.5-5.1); SODIUM LEVEL 138 MEQ/L (136-145); TOTAL PROTEIN 7.1 GM/DL (6.4-8.2); TRIGLYCERIDES LEVEL 238 MG/DL (<150)
[2021-02-12 15:10] LABS: CREATININE, URINE 73.8 MG/DL; MALB URINE SIEMENS 8.2 MG/L; MAU/CREAT RATIO 11.1 MCG/MG (0.0-30.0)
== END ==
LOC: M LAB 12:45
PROVIDERS: ATTEND Family Medicine
DX: E11.40 Type 2 diabetes mellitus with diabetic neuropathy, unspecified (principal); E78.5 Hyperlipidemia, unspecified; R94.5 Abnormal results of liver function studies; L65.9 Nonscarring hair loss, unspecified; I10 Essential (primary) hypertension; E03.9 Hypothyroidism, unspecified; E87.6 Hypokalemia

== ENCOUNTER → 2021-12-03 | Outpatient (CLI) | payer OTHER ==
[~2021-12-03] MED LIST changes: -KLOR10TA76 PO; +LOSA100T45; +LOSA100T45 PO; -LOSA100T50; -LOSA100T50 PO; +POTA-136 PO
[2021-12-03 13:21] LABS: BASO # 0.1 10^3/uL (0.0-0.2); BASO % 0.7 % (0.0-1.0); EOS # 0.5 10^3/uL (0.0-0.5); EOS % 4.4 % (0.0-3.0); HEMATOCRIT 46.2 % (36.0-47.0); LYMPH # 2.5 10^3/uL (1.5-5.0); LYMPH % 24.7 % (24.0-44.0); MEAN CORPUSCULAR HEMOGLOBIN 26.9 pg (27.0-33.0); MEAN CORPUSCULAR HGB CONC 34.6 g/dl (32.0-36.5); MEAN CORPUSCULAR VOLUME 77.6 fl (80.0-96.0); MONO # 0.4 10^3/uL (0.0-0.8); MONO % 4.2 % (2.0-8.0); NEUTROPHILS # 6.6 10^3/uL (1.5-8.5); PLATELET COUNT, AUTOMATED 361 10^3/uL (150-450); RED BLOOD COUNT 5.95 10^6/uL (4.00-5.40); WHITE BLOOD COUNT 10.2 10^3/uL (4.0-10.0)
[2021-12-03 13:47] LABS: ALT/SGPT 37 U/L (12-78); BILIRUBIN,TOTAL 0.6 MG/DL (0.2-1.0); BLOOD UREA NITROGEN 18 MG/DL (7-18); CALCIUM LEVEL 10.5 MG/DL (8.5-10.1); CARBON DIOXIDE LEVEL 26 MEQ/L (21-32); CHLORIDE LEVEL 97 MEQ/L (98-107); CHOLESTEROL LEVEL 160 MG/DL (<200); CHOLESTEROL RISK RATIO 2.909 (<5); CREATININE FOR GFR 0.81 MG/DL (0.55-1.30); FREE T4 1.49 NG/DL (0.76-1.46); GLOMERULAR FILTRATION RATE > 60.0 (>51); GLUCOSE, FASTING 284 MG/DL (70-100); HDL CHOLESTEROL 55 MG/DL (>40); IRON (FE) 76 UG/DL (50-170); LDL CHOLESTEROL 64 MG/DL (<100); MAGNESIUM LEVEL 2.6 MG/DL (1.8-2.4); NON-HDL-C 105 MG/DL; POTASSIUM SERUM 3.9 MEQ/L (3.5-5.1); SODIUM LEVEL 135 MEQ/L (136-145); THYROID STIMULATING HORMONE 0.626 uIU/ML (0.358-3.740); TOTAL PROTEIN 7.6 GM/DL (6.4-8.2); TRIGLYCERIDES LEVEL 204 MG/DL (<150)
[2021-12-03 14:50] LABS: HEMOGLOBIN A1c 10.3 %
== END ==
LOC: M LAB 12:37
PROVIDERS: ATTEND Family Medicine
DX: E11.9 Type 2 diabetes mellitus without complications (principal)

== ENCOUNTER → 2022-08-03 | Outpatient (CLI) | payer OTHER ==
[~2022-08-03] MED LIST changes: +ALBU6.7H6 INH; -POTA10CA32; +POTA10CA33; -PROV108A INH
[2022-08-03 12:22] LABS: BASO # 0.1 10^3/uL (0.0-0.2); BASO % 0.5 % (0.0-1.0); EOS # 0.2 10^3/uL (0.0-0.5); EOS % 1.6 % (0.0-3.0); HEMATOCRIT 46.9 % (36.0-47.0); HEMOGLOBIN 15.9 g/dl (12.0-15.5); LYMPH # 2.2 10^3/uL (1.5-5.0); MEAN CORPUSCULAR HGB CONC 33.9 g/dl (32.0-36.5); MEAN CORPUSCULAR VOLUME 79.8 fl (80.0-96.0); MONO # 0.5 10^3/uL (0.0-0.8); MONO % 5.2 % (2.0-8.0); NEUTROPHILS % 70.2 % (36.0-66.0); PLATELET COUNT, AUTOMATED 393 10^3/uL (150-450); RED BLOOD COUNT 5.88 10^6/uL (4.00-5.40)
[2022-08-03 12:44] LABS: IRON (FE) 53 UG/DL (50-170)
[2022-08-03 12:47] LABS: ALBUMIN 3.7 G/DL (3.2-5.2); ALKALINE PHOSPHATASE 184 U/L (46-116); ALT/SGPT 33 U/L (7.0-40); AST/SGOT 15 U/L (<34); BILIRUBIN,TOTAL 0.5 MG/DL (0.3-1.2); BLOOD UREA NITROGEN 13 MG/DL (9-23); CALCIUM LEVEL 9.7 MG/DL (8.5-10.1); CARBON DIOXIDE LEVEL 29 MMOL/L (20-31); CHLORIDE LEVEL 103 MMOL/L (98-107); CHOLESTEROL LEVEL 177 MG/DL (<200); CHOLESTEROL RISK RATIO 2.69 (<5); CREATININE FOR GFR 0.62 MG/DL (0.55-1.30); GLOMERULAR FILTRATION RATE > 60.0 (>51); GLUCOSE, FASTING 220 MG/DL (60-100); HDL CHOLESTEROL 65.6 MG/DL (>40); MAGNESIUM LEVEL 2.1 MG/DL (1.8-2.4); NON-HDL-C 111 MG/DL; POTASSIUM SERUM 3.6 MMOL/L (3.5-5.1); SODIUM LEVEL 140 MMOL/L (136-145); TOTAL PROTEIN 7.1 G/DL (5.7-8.2); TRIGLYCERIDES LEVEL 172 MG/DL (<150)
[2022-08-03 12:48] LABS: TOTAL 25(OH) VITAMIN D 51.4 NG/ML (20.0-100.0)
[2022-08-03 12:50] LABS: FREE T4 1.32 NG/DL (0.89-1.76)
== END ==
LOC: M LAB 11:16
PROVIDERS: ATTEND Family Medicine
DX: E78.5 Hyperlipidemia, unspecified (principal); E11.9 Type 2 diabetes mellitus without complications; E87.6 Hypokalemia; I10 Essential (primary) hypertension; R31.29 Other microscopic hematuria; R06.02 Shortness of breath; E55.9 Vitamin D deficiency, unspecified

== ENCOUNTER → 2023-02-03 | Outpatient (CLI) | payer OTHER ==
[~2023-02-03] MED LIST changes: -AMIT25TA17 PO; +AMIT25TA19 PO; -LOSA100T45; -LOSA100T45 PO; +LOSA100T46; +LOSA100T46 PO; -POTA10CA33; +POTA10CA60
== END ==
LOC: M PLAIMG 14:12
PROVIDERS: ATTEND Pain Medicine Interventional Pain Medicine
DX: M54.16 Radiculopathy, lumbar region (principal)

== ENCOUNTER → 2023-02-03 | Outpatient (REF) | payer OTHER ==
[2023-02-03 17:47] LABS: MAU/CREAT RATIO 31.8 MCG/MG (0.0-30.0)
== END ==
LOC: M LAB REF 16:19
PROVIDERS: ATTEND Nurse Practitioner Family
DX: E11.65 Type 2 diabetes mellitus with hyperglycemia (principal)

== ENCOUNTER → 2023-09-14 | Outpatient (CLI) | payer OTHER ==
[~2023-09-14] MED LIST changes: +EZET10TA58 PO; +GLIP5TAB17 PO; -GLIP5TAB8 PO; +INSU100V19 SC; -INSURSD SC; -ZETI10TA16 PO
== END ==
LOC: M SOG 07:54
PROVIDERS: ATTEND Orthopaedic Surgery
DX: M54.2 Cervicalgia (principal); M47.812 Spondylosis without myelopathy or radiculopathy, cervical region

== ENCOUNTER → 2023-12-21 | Outpatient (CLI) | payer OTHER ==
[~2023-12-21] MED LIST changes: -POTA10CA60; +POTA10CA70
[2023-12-21 13:41] LABS: IONIZED CALCIUM 4.7 MG/DL (4.5-5.3)
[2023-12-21 13:51] LABS: BLOOD UREA NITROGEN 24 MG/DL (9-23); CALCIUM LEVEL 9.5 MG/DL (8.5-10.1); CARBON DIOXIDE LEVEL 26 MMOL/L (20-31); CHLORIDE LEVEL 99 MMOL/L (98-107); CREATININE FOR GFR 0.62 MG/DL (0.55-1.30); GLOMERULAR FILTRATION RATE > 60.0 (>51); GLUCOSE, FASTING 440 MG/DL (60-100); POTASSIUM SERUM 3.8 MMOL/L (3.5-5.1); PTH INTACT 45.6 PG/ML (18.5-88.0); SODIUM LEVEL 133 MMOL/L (136-145)
== END ==
LOC: M LAB 12:36
PROVIDERS: ATTEND Family Medicine
DX: E83.52 Hypercalcemia (principal)

== ENCOUNTER 2024-07-11 22:47 | Emergency (ER) | payer OTHER ==
[~2024-07-11] VITALS: Ht 162.6 cm; Wt 109.1 kg
[~2024-07-11 22:47] MED LIST changes: +GABA-1490; -GABA600T4; +METH-1386; +METH-1386 OR; -METH25TAB; -METH25TAB OR
[2024-07-11 23:53] LABS: BASO % 0.4 % (0.0-1.0); EOS # 0.1 10^3/uL (0.0-0.5); EOS % 1.2 % (0.0-3.0); HEMATOCRIT 42.8 % (36.0-47.0); HEMOGLOBIN 15.2 g/dl (12.0-15.5); LYMPH % 18.6 % (24.0-44.0); MEAN CORPUSCULAR HEMOGLOBIN 27.5 pg (27.0-33.0); MEAN CORPUSCULAR HGB CONC 35.5 g/dl (32.0-36.5); MEAN CORPUSCULAR VOLUME 77.4 fl (80.0-96.0); MONO # 0.7 10^3/uL (0.0-0.8); MONO % 6.2 % (2.0-8.0); NEUTROPHILS # 7.6 10^3/uL (1.5-8.5); NEUTROPHILS % 73.1 % (36.0-66.0); PLATELET COUNT, AUTOMATED 302 10^3/uL (150-450); RED BLOOD COUNT 5.53 10^6/uL (4.00-5.40); WHITE BLOOD COUNT 10.5 10^3/uL (4.0-10.0)
[2024-07-12 00:17] LABS: CK-MB VALUE MASS < 1.0 NG/ML (<3.6)
[2024-07-12 00:18] LABS: LIPASE 40 U/L (12-53)
[2024-07-12 00:19] LABS: CPK CREATINE PHOSPHOKINASE 31 U/L (34-145); MB/CK RELATIVE INDEX 3.22 (< OR =4)
[2024-07-12 00:20] LABS: ALBUMIN 3.6 G/DL (3.2-5.2); ALKALINE PHOSPHATASE 163 U/L (35-104); ALT/SGPT 18 U/L (7.0-40); AST/SGOT 10 U/L (<34); BILIRUBIN,DIRECT 0.1 MG/DL (<0.4); BILIRUBIN,TOTAL 0.5 MG/DL (0.3-1.2); BLOOD UREA NITROGEN 15 MG/DL (9-23); CALCIUM LEVEL 10.1 MG/DL (8.5-10.1); CARBON DIOXIDE LEVEL 25 MMOL/L (20-31); CHLORIDE LEVEL 98 MMOL/L (98-107); CREATININE FOR GFR 0.67 MG/DL (0.55-1.30); GLOMERULAR FILTRATION RATE > 60.0 (>51); GLUCOSE, FASTING 322 MG/DL (60-100); POTASSIUM SERUM 3.2 MMOL/L (3.5-5.1); SODIUM LEVEL 135 MMOL/L (136-145); TOTAL PROTEIN 6.9 G/DL (5.7-8.2)
[2024-07-12 02:50] LABS: KETONE, URINE AUTO RFX 1+ mg/dL (NEGATIVE); NITRITE, URINE AUTO RFX NEGATIVE (NEGATIVE); RBC, URINE AUTO RFX 2 /HPF (0-3); SQUAM EPITHELIAL CELL UR AURFX 1 /HPF (0-6)
[2024-07-12 02:51] LABS: LEUKOCYTE ESTERASE UR AUTO RFX 2+ (NEGATIVE); WBC, URINE AUTO RFX 91 /HPF (0-3)
[2024-07-12 08:44] VITALS: BP 128/58
[2024-07-12] MEDS: CARVedilol 12.5 MG TAB PO ONE (08:44)
[2024-07-12] MEDS: POTASSIUM CHLORIDE 10MEQ SR TABLET PO ONE (08:44)
[2024-07-12] MEDS: METOCLOPRAMIDE INJ 10MG/2ML VIAL IV ONE (08:44)
[2024-07-12] MEDS: HumuLIN R (REGULAR) INSULIN (NovoLIN R) **100U/ML** PER UNIT IV ONE (08:45)
[2024-07-12] MEDS: NS 500 ML IV ONE (08:45)
[2024-07-12] MEDS: ACETAMINOPHEN 500 MG TAB PO ONE (09:37)
[2024-07-12] MEDS ORDERED: ZOLO100T PO (09:37)
[2024-07-12] MEDS ORDERED: PRAZ1CAP PO (09:37)
[2024-07-12] MEDS ORDERED: VITA500045 PO (09:37)
[2024-07-12] MEDS ORDERED: LOSA50TA28 PO (09:37)
[2024-07-12] MEDS ORDERED: POTA10CA70 PO (09:37)
[2024-07-12] MEDS ORDERED: BENZ0.5T2 PO (09:38)
[2024-07-12] MEDS ORDERED: SPIR-10 PO (09:44)
[2024-07-12] MEDS ORDERED: CHLO25TA PO (09:44)
[2024-07-12] MEDS ORDERED: CARV25TA PO (09:44)
[2024-07-12] MEDS ORDERED: ARIP1TAB4 PO (09:44)
[2024-07-12] MEDS ORDERED: INVO300T PO (09:44)
[2024-07-12] MEDS ORDERED: HOME MED LIST COMPLETE! XX SCH ×2 (09:45→09:50)
[2024-07-12] MEDS ORDERED: ATOR80TA59 PO (09:50)
[2024-07-12 12:00] VITALS: O2SAT 99
[2024-07-12] MEDS ORDERED: PROM12.56 PO (12:04)
[2024-07-12 12:09] VITALS: BP 111/59; TEMP 97.8
== END 2024-07-12 12:12 | disposition home or self-care (01) ==
LOC: EDBD 22:47 → M ED 22:47
DX: S06.0X0A Concussion without loss of consciousness, initial encounter (principal); R11.2 Nausea with vomiting, unspecified; R19.7 Diarrhea, unspecified; Y92.9 Unspecified place or not applicable; Y93.9 Activity, unspecified; Y99.9 Unspecified external cause status; I48.0 Paroxysmal atrial fibrillation; I25.2 Old myocardial infarction; I44.4 Left anterior fascicular block; I10 Essential (primary) hypertension; E78.5 Hyperlipidemia, unspecified; E11.9 Type 2 diabetes mellitus without complications; Z88.5 Allergy status to narcotic agent; Z79.899 Other long term (current) drug therapy
CPT/HCPCS: 70450; 80048; 80076; 81001; 82550; 82553; 83605; 83690; 84484; 85025; 87040; 87077; 87086; 87154; 87186; 93005; 93041; 96361; 96374; 96375; 99285; J1815; J2765

== ENCOUNTER → 2025-05-08 | Outpatient (CLI) | payer OTHER ==
[~2025-05-08] MED LIST changes: +ARIP1TAB4 PO; +ATOR80TA59 PO; +BENZ0.5T2 PO; +CARV25TA PO; +CHLO25TA PO; +ERGO125013 PO; -EZET10TA21; +EZET10TA57; -INSU100V19 SC; +INSURSDRX SC; +INVO300T PO; +LOSA50TA28 PO; +POTA10CA70 PO; +PRAZ1CAP PO; +PROM12.56 PO; +SPIR-10 PO; +ZOLO100T PO
== END ==
LOC: M RAD 12:52
PROVIDERS: ATTEND Physician Assistant
DX: M47.12 Other spondylosis with myelopathy, cervical region (principal)